=== PATIENT | female | born 1945 | race Caucasian/White ===

== ENCOUNTER 2020-11-13 08:04 | Day surgery (SDC) | payer MEDICARE, OTHER ==
[2020-11-13] VITALS (9 sets, daily range): BP systolic 91–148; BP diastolic 41–85; PULSE 60–67; TEMP 98.1
[2020-11-13 09:27] LABS: HEMATOCRIT 38.5 % (37.0-47.0); HEMOGLOBIN 12.6 g/dl (12.5-16.0); MEAN CELL VOLUME 94 fl (80.0-100.0); MEAN CORPUSCULAR HEMOGLOBIN 31 pg (27.0-31.0); MEAN CORPUSCULAR HGB CONC 33 g/dl (33.0-37.0); MEAN PLATELET VOLUME 11.5 fl (7.4-10.4); PLATELET COUNT 193 K/mm3 (130-400); RED BLOOD COUNT 4.11 M/mm3 (4.10-5.30); REDCELL DISTRIBUTION WIDTH-CV 13.5 % (11.5-14.5)
[2020-11-13 09:34] LABS: PROTHROMBIN TIME 10.6 SECONDS (9.7-12.8)
[2020-11-13 09:37] LABS: PARTIAL THROMBOPLASTIN TIME 30.5 SECONDS (26.0-37.0)
[2020-11-13 09:38] LABS: CREATININE, serum 1.28 (0.52-1.25); POTASSIUM 4.9 mmol/L (3.4-5.0)
[2020-11-13] MEDS ORDERED: TYLENOL W/COD1 UDTAB PO (09:52)
[2020-11-13] MEDS ORDERED: LASIX 40MG TABL40 MG PO (09:53)
[2020-11-13] MEDS ORDERED: LOPRESSOR 550 MG/TAB PO (09:53)
[2020-11-13] MEDS ORDERED: IPRATROPIUM BROM3 M1 IH (09:54)
[2020-11-13] MEDS ORDERED: PLAQUENIL 200M200 MG PO (09:54)
[2020-11-13] MEDS ORDERED: NITROSTAT0.4 MG/TAB SL (09:55)
[2020-11-13] MEDS ORDERED: SYNTHROID0.1 MG/TAB PO (09:56)
[2020-11-13] MEDS ORDERED: VALTREX1 GM PO (09:57)
[2020-11-13] MEDS ORDERED: ZOLOFT 50MG50 MG PO (09:58)
[2020-11-13] MEDS ORDERED: PRIL40 PO (09:58)
--- NOTE | 2020-11-13 11:30 | NUR ---
PT IS BACK FROM [facility], REPORT FROM ARIELLE CONLEY. PT IS AWAKE AND ALERT, NO DISTRESS. TR BAND IN PLACE TO RT WRIST, CMS INTACT DISTAL. NSR ON MONITOR. DAUGHTER AT BS. PT AND DAUGHTER UPDATED ON POC, LUNCH ORDERED, CALL LIGHT IN REACH.
--- NOTE | 2020-11-13 12:15 | NUR ---
PT HAS HAD LUNCH, RT RADIAL SITE LOOKS GOOD, PT UP TO BATHROOM IN ROOM 11 AT THIS TIME. STEADY GAIT. WCTM.
--- NOTE | 2020-11-13 15:00 | NUR ---
TR BAND HAS BEEN DEFLATED WITH NO PROBLEM. CMS REMAINS INTACT DISTAL. SITE DRESSED WITH FOLDED 2X2 AND COBAN. I REVIEWED DC/FU INSTRUCTIONS WITH PT AND HER DAUGHTER. THEY BOTH VERBALIZE UNDERSTANDING. PT IS DRESSED AND READY TO GO, IV IS DC'D WITH CATH INTACT DRESSING APPLIED. TO EXIT AT 1515 VIA WHEELCHAIR.
== END 2020-11-13 15:15 | disposition home or self-care (01) ==
LOC: COL.CAR 08:04
PROVIDERS: Internal Medicine Cardiovascular Disease
DX: I25.119 Atherosclerotic heart disease of native coronary artery with unspecified angina pectoris (principal); I77.1 Stricture of artery; I10 Essential (primary) hypertension; J44.9 Chronic obstructive pulmonary disease, unspecified; G47.33 Obstructive sleep apnea (adult) (pediatric); E78.5 Hyperlipidemia, unspecified; E03.9 Hypothyroidism, unspecified; K21.9 Gastro-esophageal reflux disease without esophagitis; F32.9 Major depressive disorder, single episode, unspecified; F41.9 Anxiety disorder, unspecified; M32.9 Systemic lupus erythematosus, unspecified; E05.90 Thyrotoxicosis, unspecified without thyrotoxic crisis or storm; E66.9 Obesity, unspecified; Z68.41 Body mass index [BMI] 40.0-44.9, adult; Z87.891 Personal history of nicotine dependence; Z79.899 Other long term (current) drug therapy; Z79.890 Hormone replacement therapy
CPT/HCPCS: J1644; J2250; J3010; Q9967

== ENCOUNTER 2021-02-12 10:14 | Day surgery (SDC) | payer MEDICARE, OTHER ==
[~2021-02-12] VITALS: Ht 142.2 cm; Wt 84.0 kg
[~2021-02-12 10:14] MED LIST: IPRATROPIUM BROM3 M1 IH; LASIX 40MG TABL40 MG PO; LOPRESSOR 550 MG/TAB PO; NITROSTAT0.4 MG/TAB SL; PLAQUENIL 200M200 MG PO; PRIL40 PO; SYNTHROID0.1 MG/TAB PO; TYLENOL W/COD1 UDTAB PO; VALTREX1 GM PO; ZOLOFT 50MG50 MG PO
--- NOTE | 2021-02-12 10:30 | NUR ---
PATIENT ARRIVED USING A WALKER AND DAUGHTER ACCOMPANIED PATIENT. STEADY GAIT. PATIENT IS ALERT AND ORIENTED X 3. CONSENT EXPLAINED AND PATIENT SIGNED. ASSESSMENT COMPLETED. LUNGS CTA. HEART SOUNDS S1S2 AND REGULAR. BOWEL SOUNDS HEARD. PEDAL PULSES FELT.
[2021-02-12] MEDS ORDERED: COREG 6.256.25 MG/TA PO (11:04)
[2021-02-12] MEDS ORDERED: NORVASC 5MG5 MG/TAB PO (11:05)
[2021-02-12] MEDS ORDERED: ATROVENT I0.2 MG/1 M IH (11:06)
[2021-02-12] MEDS ORDERED: RT ADVAIR 228 DISKUS IH (11:06)
[2021-02-12 11:43] VITALS: BP 152/82; PULSE 65; TEMP 98.1
[2021-02-12 12:15] VITALS: BP 134/69; PULSE 71; TEMP 97.6
[2021-02-12 12:30] VITALS: BP 134/86; PULSE 71
[2021-02-12 12:45] VITALS: BP 127/61; PULSE 69
--- NOTE | 2021-02-12 13:00 | NUR ---
1215: - Pt returns from endo procedure via cart to [facility]. Pt ambulates from cart to recliner with RN assist. Monitors on and alarms set. Call light within reach. Pt alert and oriented. Pt requests orange juice and muffin. Pt denies any pain or nausea. Dr in to speak with patient. 1230- Pt taking food and drink well. No complications noted. 1245 Discharge instructions given to pt. All questions answered to patient and daughter's satisfaction. Handed to pt are education material and discharge information. 1300- Pt transferred out of the hospital via wheelchair and RN assist, to private vehicle driven by YAEL chavez.
== END 2021-02-12 13:00 | disposition home or self-care (01) ==
LOC: SDCO 10:14
DX: D12.2 Benign neoplasm of ascending colon (principal); D12.5 Benign neoplasm of sigmoid colon; K64.0 First degree hemorrhoids; R19.4 Change in bowel habit; R19.7 Diarrhea, unspecified; R15.2 Fecal urgency; K21.9 Gastro-esophageal reflux disease without esophagitis; J44.9 Chronic obstructive pulmonary disease, unspecified; I10 Essential (primary) hypertension; E03.9 Hypothyroidism, unspecified; G47.33 Obstructive sleep apnea (adult) (pediatric); M81.0 Age-related osteoporosis without current pathological fracture; E78.5 Hyperlipidemia, unspecified; F41.9 Anxiety disorder, unspecified; F32.A Depression, unspecified; Z79.890 Hormone replacement therapy; Z79.899 Other long term (current) drug therapy; Z90.49 Acquired absence of other specified parts of digestive tract; Z90.710 Acquired absence of both cervix and uterus; Z87.891 Personal history of nicotine dependence
CPT/HCPCS: J2704; J7030

== ENCOUNTER 2021-07-22 07:29 | Day surgery (SDC) | payer MEDICARE, OTHER ==
[~2021-07-22] VITALS: Ht 142.4 cm; Wt 83.6 kg
[2021-07-22] VITALS (12 sets, daily range): BP systolic 11–147; BP diastolic 45–96; PULSE 61–100; TEMP 97.4–98.8
[~2021-07-22 07:29] MED LIST changes: +ATROVENT I0.2 MG/1 M IH; +COREG 6.256.25 MG/TA PO; +NORVASC 5MG5 MG/TAB PO; +RT ADVAIR 228 DISKUS IH
[2021-07-22] MEDS ORDERED: SYNTHROID0.112 MG/T PO (09:16)
[2021-07-22] MEDS ORDERED: COLESTID 1GM1 G PO (09:17)
[2021-07-22] MEDS ORDERED: COREG 6.256.25 MG/TA (09:24)
--- NOTE | 2021-07-22 10:35 | NUR ---
Initial visit; Patient and her daughter thanked Legal Records Manager for offering comfort, encouragement and prayer prior to Devora's surgical procedure.
--- NOTE | 2021-07-22 16:45 | NUR ---
Pt transferred to unit from OR s/p right mastectomy and hernia repair. Aquacell dsg. to right breast CDI. Randy drain patent to bulb suction. Midline low abd. incision covered with Aquacell dsg. & is CDI. Pt's daughter is at bedside. Admission assessment & Intake completed. Pt is alert & oriented. Tolerating sips of clear liquid and ice chips okay. She denies nausea. She reports abd. incision pain - PRN pain medication administered. Orientation provided to room, visiting policy, call light, & asking for assistance when she needs help. Pt. voiced understanding. Denies further needs at this time. Call light is within her reach
--- NOTE | 2021-07-22 17:30 | NUR ---
Pt. reporting feeling itchy. She reports abd. incision pain. PRN Benadryl and [place] given. No rash areas/hives present. Abd. inicision dressing has some drainage noted. Daughter is at bedside assisting with eating dinner. Pt. denies further needs at this time. Call light is within her reach
--- NOTE | 2021-07-22 18:21 | NUR ---
Pt. sleeping in bed. HOB raised about 45 degrees. WALLY drain patent to bulb suction. SCDs are on bilaterally. Call light is within her reach
--- NOTE | 2021-07-22 19:05 | NUR ---
REPORT FROM SLIM CONLEY. PATIENT IN BED. ALERT BUT DROWSY. C/O ITCHING TO HER FACE/NOSE. MODERATE PAIN TO HER LOW MIDLINE INCISION. WALLY DRAIN WITH BLOODY RED DRAINAGE. POST OP VSS.
--- NOTE | 2021-07-23 00:39 | NUR ---
PATIENT DOING WELL TONIGHT. C/O MODERATE PAIN WITH PRN MORPHINE GIVEN. WALLY DRAIN WITH BLOODY OUTPUT. R BREAST SITE CDI. LOW MIDLINE DRESSING WITH SOME BLOODY DRAINAGE NOTED. BLOOD SUGARS WERE 174. WILL INT L HAND IV WHEN FLUIDS ARE DONE. 2 L O2 VIA NC. VSS. C/O ITCHINESS TO FACE, PRN BENADRYL GIVEN AND COLD WASH CLOTH APPLIED. TOLERATED GRAHM CRACKERS AND MILK.
[2021-07-23 03:27] VITALS: BP 124/72; PULSE 76; TEMP 98.2
[2021-07-23 07:13] VITALS: BP 124/50; PULSE 69; TEMP 98.1
--- NOTE | 2021-07-23 08:07 | NUR ---
Patient resting in bed. She has complaints of pain 8/. Right side of chest & low abdomen. New dressings applied per . rounded & plan of care reviewed. Trip drain to compression. Scds Ble. Int. Will continue to monitior.
--- NOTE | 2021-07-23 09:37 | NUR ---
Patient continues to reports pain a 12/27. made aware. Percocet orders obtained.
[2021-07-23 11:49] VITALS: BP 119/40; PULSE 76; TEMP 98.4
[2021-07-23 15:05] VITALS: BP 125/48; PULSE 71; TEMP 97.6
--- NOTE | 2021-07-23 15:53 | NUR ---
Patient assisted back to bed. Pain elevated as she sat in chair. Pain rating 8/10. Percocet continues to manages her pain better then norco, but pain is still present. Did review with her that pain is to be expected. Right breast & low abdominal incisions dressing Cdi. Int. Scds. Will monitor.
--- NOTE | 2021-07-23 19:28 | NUR ---
Patient assisted to bathroom, steady on her feet with walker. Voided. She did well with dinner. One tab percocet for continued pain. Rating 8/10. WALLY drain to compression. Breast & abdominal incisions remains Cdi. [facility]
[2021-07-23 20:41] VITALS: BP 106/39; PULSE 76; TEMP 98.1
--- NOTE | 2021-07-23 21:09 | NUR ---
PT REPORTS DIFFUSE ITCHING. MEDICATED WITH HS MEDS INCLUDING BENADRYL 25MG PO AT THIS TIME. INT TO LEFT HAND, VOIDING WITHOUT PROBLEM. DRSGS TO RT BREAST AND ABD D/I. WALLY DRAIN TO BULB SX.
[2021-07-23 23:55] VITALS: BP 120/53; PULSE 75; TEMP 98
--- NOTE | 2021-07-24 04:07 | NUR ---
PT HAS RESTED WELL. AWAKE AND COMPLAINS OF PAIN TO RT BREAST AND ABD. MEDICATED WITH PERCOCET 1 TAB PO WITH BENADRYL 25MG PO FOR ITCH.
[2021-07-24 04:47] VITALS: BP 117/63; PULSE 78; TEMP 98.1
[2021-07-24 07:38] VITALS: BP 110/54; PULSE 77; TEMP 98.2
[2021-07-24] MEDS ORDERED: PERCOCET 325 MG1 TA2 PO (08:11)
--- NOTE | 2021-07-24 09:09 | NUR ---
Assessment completed, alert/oriented, vital signs stable, reports moderate pain to incision sites, incision sites look good and are well approximated, dressings C/D/I, right sided WALLY drain remains in place with moderate amount of serosanguinous drainage noted/ Plans to leave drain in place upon discharge, she has had breakfst and and morning meds givne, denies other needs, will work on discharge plan of care at [facility]
--- NOTE | 2021-07-24 09:24 | NUR ---
Follow-up visit; Patient thanked Twisting Press Operator for praying for her prior to her surgical procedure and states she is doing well and about to be discharged. Twisting Press Operator wished patient well and will keep her in her prayers.
--- NOTE | 2021-07-24 11:43 | NUR ---
Discharge instructions reviewed with patient and her daughter, instructed to follow up as scheduled for her with , discussed incision site bathing/ cares, instructed on WALLY drain care and maintenence/ demonstrated emptying and they verbalized understanding of teaching, instructed to take meds as prescribed/ script for Oxycodone sent to [facility] for her, instructed to use oTC stool softener if needed, IV site removed, STERILE PROCESSING TECHNOLOGIST will escort them out the door
== END 2021-07-24 11:52 | disposition home or self-care (01) ==
LOC: SDCO 07:29 → SURG 15:52 → SDCO 07-24 11:52
DX: C50.411 Malignant neoplasm of upper-outer quadrant of right female breast (principal); M32.14 Glomerular disease in systemic lupus erythematosus; K43.2 Incisional hernia without obstruction or gangrene; Z87.891 Personal history of nicotine dependence; Z68.38 Body mass index [BMI] 38.0-38.9, adult
CPT/HCPCS: OP; A9520; C1781; J0330; J1100; J1170; J1885; J2250; J2270; J2405; J2704; J2795; J3010; J7120

== ENCOUNTER → 2021-08-09 | Outpatient (CLI) | payer MEDICARE, OTHER ==
[~2021-08-09] MED LIST changes: +COLESTID 1GM1 G PO; +COREG 6.256.25 MG/TA; +PERCOCET 325 MG1 TA2 PO; +SYNTHROID0.112 MG/T PO
== END ==
LOC: COL.RAD 07:39
DX: R06.02 Shortness of breath (principal); R79.89 Other specified abnormal findings of blood chemistry
CPT/HCPCS: A9540; A9567